=== PATIENT | female | born 1985 | race Asian ===

== ENCOUNTER 2019-03-30 15:46 | Outpatient (CLI) | payer OTHER ==
[~2019-03-30] VITALS: Ht 157.5 cm; Wt 70.9 kg
[2019-03-30 16:50] LABS: BASOPHILS # (AUTO) 0.01 x10^3/uL (0-0.1); BASOPHILS % (AUTO) 0 % (0-1); EOSINOPHILS # (AUTO) 0.03 x10^3/uL (0-0.4); EOSINOPHILS % (AUTO) 0 % (1-7); LYMPHOCYTES # (AUTO) 2.03 x10^3/uL (1-3.4); LYMPHOCYTES % (AUTO) 22 % (22-44); MD NO; MEAN CORPUSCULAR HEMOGLOBIN 20.2 pg (27.0-34.8); MEAN CORPUSCULAR HGB CONC 30.7 g/dL (32.4-35.8); MEAN CORPUSCULAR VOLUME 65.8 fL (80-100); MEAN PLATELET VOLUME 12.3 fL (7.4-10.4); MONOCYTES # (AUTO) 0.51 x10^3/uL (0.2-0.8); MONOCYTES % (AUTO) 6 % (2-9); NEUTROPHILS # (AUTO) 6.66 x10^3/uL (1.8-6.8); NEUTROPHILS % (AUTO) 72 % (42-75); PLATELET COUNT 297 x10^3/uL (130-400); RED BLOOD COUNT 5.24 x10^6/uL (3.82-5.3); RED CELL DISTRIBUTION WIDTH 14.7 % (9.6-15.2)
[2019-03-30 16:58] LABS: MICROSCOPIC NOT IND
[2019-03-30 17:02] LABS: ALANINE AMINOTRANSFERASE 19 U/L (12-78); ALBUMIN 2.9 g/dL (3.4-5.0); ANION GAP 8 mmol/L (5-15); CALCIUM 8.6 mg/dL (8.5-10.1); CHLORIDE 111 mmol/L (98-107); CREATININE 0.55 mg/dL (0.55-1.02)
[2019-03-30 17:04] LABS: BILIRUBIN, DIRECT < 0.1 mg/dL (0.1-0.2)
[2019-03-30 17:05] LABS: ALKALINE PHOSPHATASE 90 U/L (45-117); BILIRUBIN,TOTAL 0.2 mg/dL (0.2-1.0)
[2019-03-30 17:33] LABS: CREATININE,URINE RANDOM 25.1 mg/dL
== END 2019-03-30 18:00 | disposition home or self-care (01) ==
LOC: LDOP 15:46
PROVIDERS: ATTEND Obstetrics & Gynecology
DX: O16.3 Unspecified maternal hypertension, third trimester (principal); Z3A.39 39 weeks gestation of pregnancy
CPT/HCPCS: 36415; 80053; 81003; 82248; 82570; 84156; 84550; 85025; 99201; G0463

== ENCOUNTER 2019-04-02 10:29 | Inpatient (IN) | payer OTHER ==
[~2019-04-02] VITALS: Ht 165.1 cm; Wt 71.0 kg
[2019-04-02] MEDS ORDERED: OXYTOCIN 30U/ 0.9% NaCL 500ML 500 ML IV ONE (21:34)
[2019-04-02] MEDS ORDERED: OXYTOCIN 30U/ 0.9% NaCL 500ML 500 ML IV PRN (21:34)
[2019-04-02] MEDS: D5%-LACTATED RINGERS 1,000 ML IV SCH (21:34)
[2019-04-02] MEDS ORDERED: LIDOCAINE 1%, 20ML ONE (21:58)
[2019-04-02] MEDS ORDERED: NEWBORN KIT ONE (21:58)
[2019-04-02] MEDS ORDERED: MISOPROSTOL 200 MCG TABLET ONE (21:58)
[2019-04-02] MEDS ORDERED: OXYTOCIN 30U/ 0.9% NaCL 500ML 500 ML ONE (21:59)
[2019-04-02] MEDS: PLEASE ENTER HEIGHT AND WEIGHT MC SCH (22:00)
[2019-04-02] MEDS ORDERED: ONDANSETRON 2MG/ML, 2ML IVPush PRN (22:00)
[2019-04-02] MEDS ORDERED: TERBUTALINE 1 MG/ML, 1ML IVPush PRN (22:00)
[2019-04-02] MEDS ORDERED: FENTANYL PF 100 MCG/2ML IVPush PRN (22:00)
[2019-04-02] MEDS ORDERED: CALCIUM CARBONATE 500 MG TAB.CHEW PO PRN (22:00)
[2019-04-02] MEDS ORDERED: MISOPROSTOL 25 MCG TABLET VG PRN (22:00)
[2019-04-02] MEDS ORDERED: FENTANYL PF 100 MCG/2ML IV PRN (22:00)
[2019-04-02] MEDS: LACTATED RINGERS 1,000 ML IV SCH ×2 (22:03→22:54)
[2019-04-02 22:17] LABS: BASOPHILS # (AUTO) 0.02 x10^3/uL (0-0.1); BASOPHILS % (AUTO) 0 % (0-1); EOSINOPHILS # (AUTO) 0.02 x10^3/uL (0-0.4); EOSINOPHILS % (AUTO) 0 % (1-7); LYMPHOCYTES # (AUTO) 2.43 x10^3/uL (1-3.4); LYMPHOCYTES % (AUTO) 23 % (22-44); MD NO; MEAN CORPUSCULAR HEMOGLOBIN 20.4 pg (27.0-34.8); MEAN CORPUSCULAR HGB CONC 30.9 g/dL (32.4-35.8); MEAN PLATELET VOLUME 12.3 fL (7.4-10.4); MONOCYTES # (AUTO) 0.35 x10^3/uL (0.2-0.8); MONOCYTES % (AUTO) 3 % (2-9); NEUTROPHILS % (AUTO) 73 % (42-75); PLATELET COUNT 286 x10^3/uL (130-400); RED BLOOD COUNT 4.97 x10^6/uL (3.82-5.3); RED CELL DISTRIBUTION WIDTH 14.6 % (9.6-15.2)
[2019-04-02 22:34] VITALS: BP 138/80
[2019-04-02] MEDS ORDERED: FENTANYL/BUPIV./NS/PF 250 ML EPIDCONT SCH (22:54)
[2019-04-02] MEDS ORDERED: EPHEDRINE 50 MG/ML, 1ML IVPush PRN (23:00)
[2019-04-02] MEDS ORDERED: LACTATED RINGERS 1,000 ML IVBOLUS PRN (23:00)
[2019-04-03] MEDS ORDERED: PREN1TAB60 PO (01:09)
[2019-04-03] MEDS ORDERED: FLUT9.9S16 NS (01:09)
[2019-04-03] MEDS ORDERED: FLUTICASONE NASAL SPRAY 16GM NAS PRN (01:30)
[2019-04-03] MEDS: LACTATED RINGERS 1,000 ML IV SCH ×6 (03:45→14:54)
[2019-04-03] MEDS ORDERED: BUPIVACAINE 0.25% ONE (04:15)
[2019-04-03] MEDS ORDERED: LIDOCAINE/PF 1.5%-EPI 1:200K, 30ML ONE (04:20)
[2019-04-03] MEDS ORDERED: FENTANYL/BUPIV./NS/PF 250 ML EPIDCONT SCH (05:15)
[2019-04-03] MEDS ORDERED: LACTATED RINGERS 1,000 ML IVBOLUS PRN (05:30)
[2019-04-03] MEDS ORDERED: ONDANSETRON 2MG/ML, 2ML IVPush PRN (05:30)
[2019-04-03] MEDS ORDERED: DIPHENHYDRAMINE 50 MG/ML, 1ML IVPush PRN (05:30)
[2019-04-03] MEDS ORDERED: EPHEDRINE 50 MG/ML, 1ML IVPush PRN (05:30)
[2019-04-03] MEDS ORDERED: NALOXONE 0.4 MG/ML, 1ML IVPush PRN (05:30)
[2019-04-03] MEDS: D5%-LACTATED RINGERS 1,000 ML IV SCH ×2 (05:34→13:34)
[2019-04-03] MEDS: PLEASE ENTER HEIGHT AND WEIGHT MC SCH (06:00)
[2019-04-03] MEDS ORDERED: TERBUTALINE 1 MG/ML, 1ML ONE (06:24)
[2019-04-03] MEDS ORDERED: MISOPROSTOL 200 MCG TABLET PR PRN (12:00)
[2019-04-03] MEDS ORDERED: METHYLERGONOVINE 0.2 MG/ML IM PRN (12:00)
[2019-04-03] MEDS ORDERED: OXYcodone/APAP 5/325MG TABLET PO PRN ×2 (12:00)
[2019-04-03] MEDS ORDERED: ACETAMINOPHEN 325 MG TABLET PO PRN (12:00)
[2019-04-03] MEDS ORDERED: OXYTOCIN 30U/ 0.9% NaCL 500ML 500 ML ONE (12:31)
[2019-04-03] MEDS ORDERED: IBUPROFEN 800 MG TABLET ONE (12:31)
[2019-04-03] MEDS: IBUPROFEN 800 MG TABLET PO PRN ×2 (12:35→20:34)
[2019-04-03] MEDS: OXYTOCIN 30U/ 0.9% NaCL 500ML 500 ML IV SCH ×2 (12:36→21:43)
[2019-04-03] MEDS ORDERED: DEXTROSE 40%, 37.5 GM GEL ONE (13:08)
[2019-04-03 14:00] VITALS: BP 121/78
[2019-04-03 19:45] VITALS: BP 110/72
[2019-04-03 20:02] LABS: MEAN CORPUSCULAR HEMOGLOBIN 20.3 pg (27.0-34.8); MEAN CORPUSCULAR HGB CONC 30.9 g/dL (32.4-35.8); MEAN CORPUSCULAR VOLUME 65.5 fL (80-100); MEAN PLATELET VOLUME 9.4 fL (7.4-10.4); PLATELET COUNT 197 x10^3/uL (130-400); RED BLOOD COUNT 4.75 x10^6/uL (3.82-5.3); RED CELL DISTRIBUTION WIDTH 14.7 % (9.6-15.2)
[2019-04-03 20:17] LABS: BASOPHILS # (AUTO) 0.01 x10^3/uL (0-0.1); BASOPHILS % (AUTO) 0 % (0-1); EOSINOPHILS # (AUTO) 0.04 x10^3/uL (0-0.4); EOSINOPHILS % (AUTO) 0 % (1-7); LYMPHOCYTES # (AUTO) 2.28 x10^3/uL (1-3.4); LYMPHOCYTES % (AUTO) 11 % (22-44); MD SCAN; MONOCYTES # (AUTO) 0.62 x10^3/uL (0.2-0.8); MONOCYTES % (AUTO) 3 % (2-9); NEUTROPHILS # (AUTO) 17.05 x10^3/uL (1.8-6.8); NEUTROPHILS % (AUTO) 85 % (42-75)
[2019-04-03] MEDS: DOCUSATE 100 MG CAPSULE PO PRN (20:34)
[2019-04-04 00:14] VITALS: BP 117/78
[2019-04-04 03:43] VITALS: BP 117/81
[2019-04-04] MEDS: IBUPROFEN 800 MG TABLET PO PRN ×2 (05:34→16:59)
[2019-04-04 07:31] VITALS: BP 107/75
[2019-04-04] MEDS: OXYTOCIN 30U/ 0.9% NaCL 500ML 500 ML IV SCH ×2 (07:43→17:43)
[2019-04-04] MEDS: PRENATAL VIT/IRON/FA 1 EACH TABLET PO SCH (08:10)
[2019-04-04] MEDS: DOCUSATE 100 MG CAPSULE PO PRN (08:13)
[2019-04-04 19:20] VITALS: BP 109/72
[2019-04-05] MEDS: IBUPROFEN 800 MG TABLET PO PRN (01:15)
[2019-04-05] MEDS: OXYTOCIN 30U/ 0.9% NaCL 500ML 500 ML IV SCH ×2 (03:43→13:43)
[2019-04-05 07:40] VITALS: BP 125/82
[2019-04-05] MEDS: DOCUSATE 100 MG CAPSULE PO PRN (09:08)
[2019-04-05] MEDS: PRENATAL VIT/IRON/FA 1 EACH TABLET PO SCH (09:08)
[2019-04-05] MEDS ORDERED: IBUP-1223 PO (10:25)
== END 2019-04-05 19:14 | disposition home or self-care (01) | DRG 807 ==
LOC: LDIP 21:25 → 2NW 04-03 14:05
PROVIDERS: ADMIT Obstetrics & Gynecology; ATTEND Obstetrics & Gynecology
PROC: 10E0XZZ Delivery of Products of Conception, External Approach (ICD-10-PCS; principal; 2019-04-03)
PROC: 0KQM0ZZ Repair Perineum Muscle, Open Approach (ICD-10-PCS; 2019-04-03)
PROC: 10907ZC Drainage of Amniotic Fluid, Therapeutic from Products of Conception, Via Natural or Artificial Opening (ICD-10-PCS; 2019-04-03)
PROC: 3E0R3BZ Introduction of Anesthetic Agent into Spinal Canal, Percutaneous Approach (ICD-10-PCS; 2019-04-03)
PROC: 00HU33Z Insertion of Infusion Device into Spinal Canal, Percutaneous Approach (ICD-10-PCS; 2019-04-03)
DX: O24.419 Gestational diabetes mellitus in pregnancy, unspecified control (principal); Z37.0 Single live birth; Z3A.40 40 weeks gestation of pregnancy; O70.1 Second degree perineal laceration during delivery; O69.81X0 Labor and delivery complicated by cord around neck, without compression, not applicable or unspecified
CPT/HCPCS: 36415; 82962; 85025; 86850; 86900; G0378; J2590; J7120